=== PATIENT | male | born 1960 | race Caucasian/White ===

== ENCOUNTER 2017-11-30 10:48 | Emergency (ER) | END 2017-11-30 15:08 | disposition home or self-care (01) ==

== ENCOUNTER 2019-09-12 05:28 | Emergency (ER) | payer BC ==
[~2019-09-12] VITALS: Ht 167.6 cm; Wt 77.2 kg
[~2019-09-12 05:28] MED LIST: HYDR-4011 PO; HYDR25TA6 PO; IBUP-1542 PO
[2019-09-12 05:30] VITALS: Ht 167.6 cm; Wt 77.2 kg
[2019-09-12 06:59] VITALS: BP 143/86; PULSE 75; RESP 18
== END 2019-09-12 07:00 | disposition home or self-care (01) ==
LOC: E/R 05:28
DX: I10 Essential (primary) hypertension (principal)
CPT/HCPCS: 80053; 83690; 84484; 85025; 93005